=== PATIENT | male | born 1995 | race Caucasian/White ===

== ENCOUNTER 2016-10-29 19:49 | Emergency (ER) | payer OTHER ==
[2016-10-29 22:54] LABS: BASO % 0.3 % (0.0-1.0); EOS % 0.4 % (0.0-3.0); LARGE UNSTAINED CELL # 0.1 K/mm3 (0.0-0.4); LARGE UNSTAINED CELL % 1.1 % (0.0-4.0); LYMPH # 0.2 K/mm3 (1.5-6.5); LYMPH % 3.2 % (24.0-44.0); MEAN CORPUSCULAR HEMOGLOBIN 30.8 pg (27.0-33.0); MEAN CORPUSCULAR HGB CONC 33.2 g/dl (32.0-36.5); MEAN CORPUSCULAR VOLUME 92.6 fl (80.0-96.0); MONO # 0.4 K/mm3 (0.0-0.8); MONO % 6.1 % (0.0-5.0); NEUTROPHILS # 6.3 K/mm3 (1.8-7.7); PLATELET COUNT, AUTOMATED 282 k/mm3 (150-450); RED CELL DISTRIBUTION WIDTH 11.9 % (11.5-14.5); WHITE BLOOD COUNT 7.1 K/mm3 (4.0-10.0)
[2016-10-29] MEDS ORDERED: KETOROLAC 30 MG/ML VIAL (J1885) As Ordered ONE (23:10)
[2016-10-29] MEDS ORDERED: ONDANSETRON 4MG/2ML VIAL (J2405) As Ordered ONE (23:10)
[2016-10-29] MEDS ORDERED: ACETAMINOPHEN 325 MG TAB As Ordered ONE (23:10)
[2016-10-29 23:16] LABS: ALBUMIN/GLOBULIN RATIO 1.03 (1.00-1.93); ALKALINE PHOSPHATASE 99 U/L (45-117); ALT/SGPT 35 U/L (12-78); AMYLASE 54 U/L (25-115); ANION GAP 9 MEQ/L (8-16); AST/SGOT 32 U/L (15-37); BILIRUBIN,DIRECT 0.1 MG/DL (0.0-0.2); BILIRUBIN,TOTAL 1.2 MG/DL (0.2-1.0); BLOOD UREA NITROGEN 20 MG/DL (7-18); CALCIUM LEVEL 8.8 MG/DL (8.5-10.1); CARBON DIOXIDE LEVEL 26 MEQ/L (21-32); CHLORIDE LEVEL 105 MEQ/L (98-107); CREATININE FOR GFR 1.41 MG/DL (0.70-1.30); GLOMERULAR FILTRATION RATE > 60.0 (>60); GLUCOSE, FASTING 114 MG/DL (70-105); SODIUM LEVEL 140 MEQ/L (136-145); TOTAL PROTEIN 7.9 GM/DL (6.4-8.2)
[2016-10-29 23:20] LABS: POTASSIUM SERUM 4.3 MEQ/L (3.5-5.1)
--- NOTE | 2016-10-30 00:42 | EDDOCDS ---
Physician Documentation [facility] Name: Winston Rodriguez Age: 21 yrs Sex: Male : 1995 Arrival Date: 10/29/2016 Time: 19:49 Bed I4 / M4 Private MD: Other - Complete Info On Cds Disposition: 10/29/16 23:52 Discharged to Home/Self Care. Impression: Other and unspecified noninfective gastroenteritis and colitis. - Condition is Stable. - Discharge Instructions: Gastritis, Adult. - Prescriptions for Zofran 4 mg Oral Tablet - take 1 tablet by ORAL route 4 times per day As needed; 10 tablet. - Medication Reconciliation, Local Pharmacy Hours form. - Follow up: Brandon Galvan [facility]; When: 2 - 3 days; Reason: Recheck today's complaints, Continuance of care. - Problem is an ongoing problem. - Symptoms have improved. Historical: - Allergies: Amoxicillin; - Home Meds: 1. Pepto-Bismol 262 mg/15 mL Oral susp as needed (Last dose: 10/29/2016 16:15) 2. ibuprofen 800 mg Oral tab uses for chronic exertional compartment syndrome prior to running for Pain (Last dose: 10/29/2016 05:45) - PMHx: chronic exertional compartment syndrome; - PSHx: none; - Social history: Smoking status: Patient states was never smoker of tobacco. Patient/guardian denies using alcohol, street drugs, No barriers to communication noted, The patient speaks fluent Russian, Speaks appropriately for age. - Family history: roommate recently had stomach bug. - : The pt / caregiver states he / she is not on anticoagulants. Home medication list is obtained from the patient. - Exposure Risk Screening:: None identified. Vital Signs: 10/29 19:51 BP 135 / 64; Pulse 102; Resp 18 S; Temp 98.0(O); Pulse Ox 100% on R/A; Weight 90.72 kg gr2 / 200 lbs (R); Height 6 ft. 1 in. (185.42 cm) (R); Pain 6/10; 22:07 BP 136 / 60; Pulse 101; Resp 18 S; Temp 98.1(O); Pulse Ox 99% on R/A; Pain 7/10; gr2 22:30 BP 117 / 56; Pulse 101; Resp 18; Temp 101.8(TE); Pulse Ox 99% on R/A; Pain 7/10; nn1 10/30 00:40 BP 104 / 45; Pulse 85; Resp 16; Temp 100.1(O); Pulse Ox 96% on R/A; Pain 0/10; mlc 10/29 19:51 Body Mass Index 26.39 (90.72 kg, 185.42 cm) gr2 MDM: 10/29 22:33 NS 0.9% 1000 ml IV at bolus once ordered. ke 22:33 Ondansetron 4 mg IVP once ordered. ke 22:33 ketorolac 30 mg IVP once ordered. ke 22:33 IV Saline Lock ordered. ke 22:33 Undress patient appropriately for examination ordered. ke 22:33 Acetaminophen Tablet 975 mg PO once ordered. ke 22:34 Amylase Ordered. EDMS 22:34 Basic Metabolic Profile Ordered. EDMS 22:34 CBC with Diff Ordered. EDMS 22:34 Lipase Ordered. EDMS 22:34 Liver Profile Ordered. EDMS 22:35 Abdomen, Flat\E\Upright,PA Chest Ordered. EDMS 22:35 NOTHING BY MOUTH+DIET ordered. EDMS 22:44 Financial registration complete. [email or web address] 22:44 [facility] Payment Agreement was scanned into [email or web address] and attached to record. ks16 23:39 Basic Metabolic Profile Reviewed. ke 23:39 CBC with Diff Reviewed. ke 23:39 Liver Profile Reviewed. ke 23:39 Amylase Reviewed. ke 23:39 Lipase Reviewed. ke Administered Medications: 23:21 Drug: NS 0.9% 1000 ml [sodium chloride 0.9 % intravenous solution] Route: IV; Rate: mlc bolus; Site: right antecubital; 10/30 00:41 Follow up: IV Status: Completed infusion [facility] 10/29 23:21 Drug: Ondansetron 4 mg [ondansetron HCl 2 mg/mL intravenous solution (2 mL)] Route: mlc IVP; Site: right antecubital; 23:44 Follow up: Response: Nausea is decreased [facility] 23:21 Drug: ketorolac 30 mg [ketorolac 30 mg/mL (1 mL) injection solution (1 mL)] Route: IVP; mlc Site: right antecubital; 23:44 Follow up: Response: Pain is decreased [facility] 23:21 Drug: Acetaminophen 975 mg [acetaminophen 325 mg tablet (3 tabs)] Route: PO; [facility] Signatures: Dispatcher [employer] Eleuterio Shields, Nadine Celaya RN RN ttPatience Burks RN RN mlc Ethel Kerns, Reg Reg [email or web address] The chart was reviewed and I authenticate all verbal orders and agree with the evaluation and treatment provided.Attachments: 22:44 [facility] Payment Agreement [email or web address] MTDD
--- NOTE | 2016-10-30 00:42 | EDDOCDS ---
Nurse's Notes [facility] Name: Winston Rodriguez Age: 21 yrs Sex: Male : 1995 Arrival Date: 10/29/2016 Time: 19:49 Bed I4 / M4 Private MD: Other - Complete Info On Cds Diagnosis: Other and unspecified noninfective gastroenteritis and colitis Presentation: 10/29 20:14 Presenting complaint: Patient states: diarrhea since this AM. Vomiting started around ttb 1815. Abd pain, mainly mid abd/umbilical pain. Adult Sepsis Screening: The patient does not have new or worsening altered mentation. Patient's respiratory rate is less than 22. Systolic blood pressure is greater than 100. Patient has a qSOFA score of 0- Negative Sepsis Screen. Suicide/Homicide risk assessment- the patient denies having any suicidal and/or homicidal ideations and does not present with any other emotional, behavioral or mental health complaints. Status: The patient is an active duty automobile repair service estimator. Transition of care: patient was not received from another setting of care. 20:14 Acuity: JAQUELINE Level 3 ttb 20:14 Method Of Arrival: Walkin/Carried/Asstd ttb Triage Assessment: 20:17 General: Appears uncomfortable, well nourished, well groomed, Behavior is appropriate ttb for age, cooperative, flat, pleasant, quiet. Pain: Location: mid abd 6-8/10 Quality of pain is described as crampy. Pt Declines HIV testing. Neurological: Level of Consciousness is awake, alert. Cardiovascular: Chest pain is denied. Respiratory: No deficits noted. Airway is patent. GI: Reports diarrhea, upper abd pain, nausea, vomiting. Derm: Skin is pale. Musculoskeletal: Reports "muscles are starting to ache". Injury Description: No known injury. Historical: - Allergies: Amoxicillin; - Home Meds: 1. Pepto-Bismol 262 mg/15 mL Oral susp as needed (Last dose: 10/29/2016 16:15) 2. ibuprofen 800 mg Oral tab uses for chronic exertional compartment syndrome prior to running for Pain (Last dose: 10/29/2016 05:45) - PMHx: chronic exertional compartment syndrome; - PSHx: none; - Social history: Smoking status: Patient states was never smoker of tobacco. Patient/guardian denies using alcohol, street drugs, No barriers to communication noted, The patient speaks fluent Greek, Speaks appropriately for age. - Family history: roommate recently had stomach bug. - : The pt / caregiver states he / she is not on anticoagulants. Home medication list is obtained from the patient. - Exposure Risk Screening:: None identified. Screenin:19 Screening information is obtained from the patient. Fall risk: No risks identified. mlc Assistance ADL's: requires no assistance with activities of daily living. Abuse/DV Screen: The patient / caregiver reports he/she is: not in a situation that causes fear, pain or injury. Nutritional screening: No deficits noted. Advance Directives: Currently, there is no health care proxy. There is no Power of Electric Blanket Packer. home support is adequate. Assessment: 22:27 General: Appears ill, Behavior is appropriate for age, cooperative. Pain: Location: nn1 umbilical area and suprapubic area Pain currently is 7 out of 10 on a pain scale. Quality of pain is described as pressure, sharp, Is intermittent. Neurological: Level of Consciousness is awake, alert, obeys commands. Respiratory: Airway is patent Respiratory effort is even, unlabored, Respiratory pattern is regular, symmetrical. GI: Abdomen is flat, non- distended Bowel sounds present X 4 quads. Abd is soft X 4 quads Abd is tender to palpation X 4 quads. Reports diarrhea, epigastric pain, gaseousness, nausea, vomiting, diarrhea began 2 weeks ago, reports scant blood in stool. Patient reports vomiting began today, reports some red discoloration in vomit as well. Derm: Skin is pale. 23:19 General: Appears in no apparent distress, comfortable. General: pt medicated per order. mlc Neurological: Level of Consciousness is awake, alert, obeys commands, Oriented to person, place, time. Respiratory: Airway is patent Respiratory effort is even, unlabored, Respiratory pattern is regular. GI: Abdomen is flat, non- distended Bowel sounds present X 4 quads. Abd is soft X 4 quads Abd is tender to palpation in umbilical area and suprapubic area. Derm: Skin is pink, warm & dry. 23:45 Reassessment: Patient appears in no apparent distress at this time. Patient states mlc feeling better. IV fluids infusing per order. resp easy/unlabored. . 10/30 00:40 General: Appears in no apparent distress, comfortable, Behavior is cooperative. Pain: mlc Denies pain. Neurological: Level of Consciousness is awake, alert, Oriented to person, place, time. Respiratory: Airway is patent Respiratory effort is even, unlabored, Respiratory pattern is regular. Derm: Skin is pink, warm & dry. Vital Signs: 10/29 19:51 BP 135 / 64; Pulse 102; Resp 18 S; Temp 98.0(O); Pulse Ox 100% on R/A; Weight 90.72 kg gr2 (R); Height 6 ft. 1 in. (185.42 cm) (R); Pain 6/10; 22:07 BP 136 / 60; Pulse 101; Resp 18 S; Temp 98.1(O); Pulse Ox 99% on R/A; Pain 7/10; gr2 22:30 BP 117 / 56; Pulse 101; Resp 18; Temp 101.8(TE); Pulse Ox 99% on R/A; Pain 7/10; nn1 10/30 00:40 BP 104 / 45; Pulse 85; Resp 16; Temp 100.1(O); Pulse Ox 96% on R/A; Pain 0/10; mlc 10/29 19:51 Body Mass Index 26.39 (90.72 kg, 185.42 cm) gr2 Vitals: 02 19:51 Log In Time: October 29, 2016 at 19:51. gr2 22:07 Log In Time: October 29, 2016 at 22:07. gr2 ED Course: 19:50 Patient visited by Gabi Baez. gr2 19:50 Patient moved to Waiting gr2 19:51 Other - Complete Info On Cds is Private Physician. gr2 19:53 Patient visited by Gabi Baez. gr2 19:53 Patient moved to Pre RCE gr2 20:16 Triage Initiated ttb 22:09 Patient visited by Gabi Baez. gr2 22:09 Patient visited by Gabi Baez. gr2 22:21 Patient moved to Triage 3 dsf 22:28 [facility] ke 22:28 Patient visited by Eleuterio Joshi FNP. ke 22:28 Patient visited by Eleuterio Joshi FNP. ke 22:36 Patient moved to I4 / M4 dsf 22:44 [facility] Payment Agreement was scanned into [employer] and attached to record. ks16 22:47 Amylase Sent. ttb 22:47 Basic Metabolic Profile Sent. ttb 22:47 CBC with Diff Sent. ttb 22:47 Lipase Sent. ttb 22:47 Liver Profile Sent. ttb 22:48 Patient visited by Nadine Pickett RN. ttb 22:48 Inserted peripheral IV: 20gauge IV in right antecubital area and blood collected. ttb Patient tolerated the procedure well. Labs drawn. (by ED staff). 23:19 The patient / caregiver is instructed regarding the plan of care and ED course. mlc 23:22 Patient visited by Patience Blount,ANNABELLE. mlc 23:45 Patient visited by Patience Blount,ANNABELLE. [facility] 23:51 Brandon Galvan [facility] is Referral Physician. 10/30 00:40 Discontinued IV lock intact, bleeding controlled, pressure dressing applied, No mlc redness/swelling at site. No procedures done that require assistance. Administered Medications: 10/29 23:21 Drug: NS 0.9% 1000 ml [sodium chloride 0.9 % intravenous solution] Route: IV; Rate: mlc bolus; Site: right antecubital; 10/30 00:41 Follow up: IV Status: Completed infusion [facility] 10/29 23:21 Drug: Ondansetron 4 mg [ondansetron HCl 2 mg/mL intravenous solution (2 mL)] Route: mlc IVP; Site: right antecubital; 23:44 Follow up: Response: Nausea is decreased [facility] 23:21 Drug: ketorolac 30 mg [ketorolac 30 mg/mL (1 mL) injection solution (1 mL)] Route: IVP; [facility] Site: right antecubital; 23:44 Follow up: Response: Pain is decreased [facility] 23:21 Drug: Acetaminophen 975 mg [acetaminophen 325 mg tablet (3 tabs)] Route: PO; [facility] Order Results: Lab Order: Amylase; SPEC'M 10/29/16 22:46 Test: AMYLASE; Value: 54; Range: 25-115; Units: U/L; Status: F Lab Order: Basic Metabolic Profile; SPEC'M 10/29/16 22:46 Test: GLUCOSE, FASTING; Value: 114; Range: 70-105; Abnormal: Above high normal; Units: MG/DL; Status: F Test: BLOOD UREA NITROGEN; Value: 20; Range: 7-18; Abnormal: Above high normal; Units: MG/DL; Status: F Test: CREATININE FOR GFR; Value: 1.41; Range: 0.70-1.30; Abnormal: Above high normal; Units: MG/DL; Status: F Test: GLOMERULAR FILTRATION RATE; Value: > 60.0; Range: >60; Status: F Test: SODIUM LEVEL; Value: 140; Range: 136-145; Units: MEQ/L; Status: F Test: POTASSIUM SERUM; Value: 4.3; Range: 3.5-5.1; Units: MEQ/L; Status: F Test: CHLORIDE LEVEL; Value: 105; Range: 98-107; Units: MEQ/L; Status: F Test: CARBON DIOXIDE LEVEL; Value: 26; Range: 21-32; Units: MEQ/L; Status: F Test: ANION GAP; Value: 9; Range: 8-16; Units: MEQ/L; Status: F Test: CALCIUM LEVEL; Value: 8.8; Range: 8.5-10.1; Units: MG/DL; Status: F Test Note: ; Units are mL/min/1.73 m2 Chronic Kidney Disease Staging per NKF: Stage I & II GFR >=60 Normal to Mildly Decreased Stage III GFR 30-59 Moderately Decreased Stage IV GFR 15-29 Severely Decreased Stage V GFR <15 Very Little GFR Left ESRD GFR <15 on DIRECTOR OF HE[employer] MARKETING Lab Order: CBC with Diff; SPEC'M 10/29/16 22:46 Test: WHITE BLOOD COUNT; Value: 7.1; Range: 4.0-10.0; Units: K/mm3; Status: F Test: RED BLOOD COUNT; Value: 4.80; Range: 4.30-6.10; Units: M/mm3; Status: F Test: HEMOGLOBIN; Value: 14.8; Range: 14.0-18.0; Units: g/dl; Status: F Test: HEMATOCRIT; Value: 44.4; Range: 42.0-52.0; Units: %; Status: F Test: MEAN CORPUSCULAR VOLUME; Value: 92.6; Range: 80.0-96.0; Units: fl; Status: F Test: MEAN CORPUSCULAR HEMOGLOBIN; Value: 30.8; Range: 27.0-33.0; Units: pg; Status: F Test: MEAN CORPUSCULAR HGB CONC; Value: 33.2; Range: 32.0-36.5; Units: g/dl; Status: F Test: RED CELL DISTRIBUTION WIDTH; Value: 11.9; Range: 11.5-14.5; Units: %; Status: F Test: PLATELET COUNT, AUTOMATED; Value: 282; Range: 150-450; Units: k/mm3; Status: F Test: NEUTROPHILS %; Value: 89.0; Range: 36.0-66.0; Abnormal: Above high normal; Units: %; Status: F Test: LYMPH %; Value: 3.2; Range: 24.0-44.0; Abnormal: Below low normal; Units: %; Status: F Test: MONO %; Value: 6.1; Range: 0.0-5.0; Abnormal: Above high normal; Units: %; Status: F Test: EOS %; Value: 0.4; Range: 0.0-3.0; Units: %; Status: F Test: BASO %; Value: 0.3; Range: 0.0-1.0; Units: %; Status: F Test: LARGE UNSTAINED CELL %; Value: 1.1; Range: 0.0-4.0; Units: %; Status: F Test: NEUTROPHILS #; Value: 6.3; Range: 1.8-7.7; Units: K/mm3; Status: F Test: LYMPH #; Value: 0.2; Range: 1.5-6.5; Abnormal: Below low normal; Units: K/mm3; Status: F Test: MONO #; Value: 0.4; Range: 0.0-0.8; Units: K/mm3; Status: F Test: EOS #; Value: 0.0; Range: 0.0-0.50; Units: K/mm3; Status: F Test: BASO #; Value: 0.0; Range: 0.0-0.2; Units: K/mm3; Status: F Test: LARGE UNSTAINED CELL #; Value: 0.1; Range: 0.0-0.4; Units: K/mm3; Status: F Lab Order: Lipase; SPEC'M 10/29/16 22:46 Test: LIPASE; Value: 129; Range: 73-393; Units: U/L; Status: F Lab Order: Liver Profile; SPEC'M 10/29/16 22:46 Test: AST/SGOT; Value: 32; Range: 15-37; Units: U/L; Status: F Test: ALT/SGPT; Value: 35; Range: 12-78; Units: U/L; Status: F Test: ALKALINE PHOSPHATASE; Value: 99; Range: 45-117; Units: U/L; Status: F Test: BILIRUBIN,TOTAL; Value: 1.2; Range: 0.2-1.0; Abnormal: Above high normal; Units: MG/DL; Status: F Test: BILIRUBIN,DIRECT; Value: 0.1; Range: 0.0-0.2; Units: MG/DL; Status: F Test: TOTAL PROTEIN; Value: 7.9; Range: 6.4-8.2; Units: GM/DL; Status: F Test: ALBUMIN; Value: 4.0; Range: 3.2-5.2; Units: GM/DL; Status: F Test: ALBUMIN/GLOBULIN RATIO; Value: 1.03; Range: 1.00-1.93; Status: F Outcome: 23:52 Discharge ordered by Provider. nery 10/30 00:40 Discharge Assessment: Patient awake, alert and oriented x 3. No cognitive and/or mlc functional deficits noted. Patient verbalized understanding of disposition instructions. patient administered narcotics - no. The following High Risk Discharge criteria are identified: None. Discharged to home ambulatory. Condition: good Condition: stable. Discharge instructions given to patient, Instructed on discharge instructions, follow up and referral plans. medication usage, Demonstrated understanding of instructions, medications, Pt was receptive of discharge instructions/ teaching. Prescriptions given X 1. No special radiology studies were completed. Property sent home with patient. 00:42 Patient left the ED. [facility] Signatures: Eleuterio Joshi FNP FNP ke Fuller, DesireeRN Nadine Cano RN RN Gabi Cr gr2 Patience Blount RN RN mlc Nunez, Nikkole, RN RN nn1 Ethel Kerns, Reg Reg [email or web address] MTDD
--- NOTE | 2016-10-30 01:30 | REP ---
Clinical: Acute abdominal pain. Technique: Upright view of the chest with supine and upright views of the abdomen and pelvis. Findings: Frontal upright view of the chest demonstrates no acute cardiopulmonary process or free air below the diaphragm to suspect pneumoperitoneum. Supine and upright views of the abdomen and pelvis demonstrate nonspecific bowel gas pattern without obstruction or perforation. No organomegaly. No abnormal calcifications. Skeletal structures normal for age. Impression: Nonspecific bowel gas pattern. Signed by Armando Byrd MD 10/30/2016 01:21 A
--- NOTE | 2016-11-01 01:43 | EDDOCDS ---
Physician Documentation [facility] Name: Winston Rodriguez Age: 21 yrs Sex: Male : 1995 Arrival Date: 10/29/2016 Time: 19:49 Bed I4 / M4 Private MD: Other - Complete Info On Cds Disposition: 10/29/16 23:52 Discharged to Home/Self Care. Impression: Other and unspecified noninfective gastroenteritis and colitis. - Condition is Stable. - Discharge Instructions: Gastritis, Adult. - Prescriptions for Zofran 4 mg Oral Tablet - take 1 tablet by ORAL route 4 times per day As needed; 10 tablet. - Medication Reconciliation, Local Pharmacy Hours form. - Follow up: [facility]; When: 2 - 3 days; Reason: Recheck today's complaints, Continuance of care. - Problem is an ongoing problem. - Symptoms have improved. Historical: - Allergies: Amoxicillin; - Home Meds: 1. Pepto-Bismol 262 mg/15 mL Oral susp as needed (Last dose: 10/29/2016 16:15) 2. ibuprofen 800 mg Oral tab uses for chronic exertional compartment syndrome prior to running for Pain (Last dose: 10/29/2016 05:45) - PMHx: chronic exertional compartment syndrome; - PSHx: none; - Social history: Smoking status: Patient states was never smoker of tobacco. Patient/guardian denies using alcohol, street drugs, No barriers to communication noted, The patient speaks fluent Greenlandic, Speaks appropriately for age. - Family history: roommate recently had stomach bug. - : The pt / caregiver states he / she is not on anticoagulants. Home medication list is obtained from the patient. - Exposure Risk Screening:: None identified. Vital Signs: 10/29 19:51 BP 135 / 64; Pulse 102; Resp 18 S; Temp 98.0(O); Pulse Ox 100% on R/A; Weight 90.72 kg gr2 / 200 lbs (R); Height 6 ft. 1 in. (185.42 cm) (R); Pain 6/10; 22:07 BP 136 / 60; Pulse 101; Resp 18 S; Temp 98.1(O); Pulse Ox 99% on R/A; Pain 7/10; gr2 22:30 BP 117 / 56; Pulse 101; Resp 18; Temp 101.8(TE); Pulse Ox 99% on R/A; Pain 7/10; nn1 10/30 00:40 BP 104 / 45; Pulse 85; Resp 16; Temp 100.1(O); Pulse Ox 96% on R/A; Pain 0/10; mlc 10/29 19:51 Body Mass Index 26.39 (90.72 kg, 185.42 cm) gr2 MDM: 10/29 22:33 NS 0.9% 1000 ml IV at bolus once ordered. ke 22:33 Ondansetron 4 mg IVP once ordered. ke 22:33 ketorolac 30 mg IVP once ordered. ke 22:33 IV Saline Lock ordered. ke 22:33 Undress patient appropriately for examination ordered. ke 22:33 Acetaminophen Tablet 975 mg PO once ordered. ke 22:34 Amylase Ordered. EDMS 22:34 Basic Metabolic Profile Ordered. EDMS 22:34 CBC with Diff Ordered. EDMS 22:34 Lipase Ordered. EDMS 22:34 Liver Profile Ordered. EDMS 22:35 Abdomen, Flat\E\Upright,PA Chest Ordered. EDMS 22:35 NOTHING BY MOUTH+DIET ordered. EDMS 22:44 Financial registration complete. [email or web address] 22:44 [facility] Payment Agreement was scanned into [employer] and attached to record. [email or web address] 23:39 Basic Metabolic Profile Reviewed. ke 23:39 CBC with Diff Reviewed. ke 23:39 Liver Profile Reviewed. ke 23:39 Amylase Reviewed. ke 23:39 Lipase Reviewed. 10/30 11:25 T-Sheet-- Draft Copy was scanned into [employer] and attached to record. gb Administered Medications: 10/29 23:21 Drug: NS 0.9% 1000 ml [sodium chloride 0.9 % intravenous solution] Route: IV; Rate: mlc bolus; Site: right antecubital; 10/30 00:41 Follow up: IV Status: Completed infusion [facility] 10/[place] 23:21 Drug: Ondansetron 4 mg [ondansetron HCl 2 mg/mL intravenous solution (2 mL)] Route: mlc IVP; Site: right antecubital; 23:44 Follow up: Response: Nausea is decreased [facility] 23:21 Drug: ketorolac 30 mg [ketorolac 30 mg/mL (1 mL) injection solution (1 mL)] Route: IVP; [facility] Site: right antecubital; 23:44 Follow up: Response: Pain is decreased [facility] 23:21 Drug: Acetaminophen 975 mg [acetaminophen 325 mg tablet (3 tabs)] Route: PO; mlc Signatures: Dispatcher [employer] Latoya Rosales, Reg Reg gb Eleuterio Joshi, MOUSE BREEDER MOUSE BREEDER Nadine Hull RN RN ttb Patience Blount RN RN [facility] Ethel Kerns, Reg Reg [email or web address] The chart was reviewed and I authenticate all verbal orders and agree with the evaluation and treatment provided.Attachments: 22:44 [facility] Payment Agreement [email or web address] 10/30 11:25 T-Sheet-- Draft Copy gb Chart Complete MTDD
--- NOTE | 2016-11-01 01:43 | EDDOCDS ---
Nurse's Notes [facility] Name: Winston Rodriguez Age: 21 yrs Sex: Male : 1995 Arrival Date: 10/29/2016 Time: 19:49 Bed I4 / M4 Private MD: Other - Complete Info On Cds Diagnosis: Other and unspecified noninfective gastroenteritis and colitis Presentation: 10/29 20:14 Presenting complaint: Patient states: diarrhea since this AM. Vomiting started around ttb 1815. Abd pain, mainly mid abd/umbilical pain. Adult Sepsis Screening: The patient does not have new or worsening altered mentation. Patient's respiratory rate is less than 22. Systolic blood pressure is greater than 100. Patient has a qSOFA score of 0- Negative Sepsis Screen. Suicide/Homicide risk assessment- the patient denies having any suicidal and/or homicidal ideations and does not present with any other emotional, behavioral or mental health complaints. Status: The patient is an active duty district service manager. Transition of care: patient was not received from another setting of care. 20:14 Acuity: JAQUELINE Level 3 ttb 20:14 Method Of Arrival: Walkin/Carried/Asstd ttb Triage Assessment: 20:17 General: Appears uncomfortable, well nourished, well groomed, Behavior is appropriate ttb for age, cooperative, flat, pleasant, quiet. Pain: Location: mid abd 6-8/10 Quality of pain is described as crampy. Pt Declines HIV testing. Neurological: Level of Consciousness is awake, alert. Cardiovascular: Chest pain is denied. Respiratory: No deficits noted. Airway is patent. GI: Reports diarrhea, upper abd pain, nausea, vomiting. Derm: Skin is pale. Musculoskeletal: Reports "muscles are starting to ache". Injury Description: No known injury. Historical: - Allergies: Amoxicillin; - Home Meds: 1. Pepto-Bismol 262 mg/15 mL Oral susp as needed (Last dose: 10/29/2016 16:15) 2. ibuprofen 800 mg Oral tab uses for chronic exertional compartment syndrome prior to running for Pain (Last dose: 10/29/2016 05:45) - PMHx: chronic exertional compartment syndrome; - PSHx: none; - Social history: Smoking status: Patient states was never smoker of tobacco. Patient/guardian denies using alcohol, street drugs, No barriers to communication noted, The patient speaks fluent Indonesian, Speaks appropriately for age. - Family history: roommate recently had stomach bug. - : The pt / caregiver states he / she is not on anticoagulants. Home medication list is obtained from the patient. - Exposure Risk Screening:: None identified. Screenin:19 Screening information is obtained from the patient. Fall risk: No risks identified. mlc Assistance ADL's: requires no assistance with activities of daily living. Abuse/DV Screen: The patient / caregiver reports he/she is: not in a situation that causes fear, pain or injury. Nutritional screening: No deficits noted. Advance Directives: Currently, there is no health care proxy. There is no Power of Slat Twister. home support is adequate. Assessment: 22:27 General: Appears ill, Behavior is appropriate for age, cooperative. Pain: Location: nn1 umbilical area and suprapubic area Pain currently is 7 out of 10 on a pain scale. Quality of pain is described as pressure, sharp, Is intermittent. Neurological: Level of Consciousness is awake, alert, obeys commands. Respiratory: Airway is patent Respiratory effort is even, unlabored, Respiratory pattern is regular, symmetrical. GI: Abdomen is flat, non- distended Bowel sounds present X 4 quads. Abd is soft X 4 quads Abd is tender to palpation X 4 quads. Reports diarrhea, epigastric pain, gaseousness, nausea, vomiting, diarrhea began 2 weeks ago, reports scant blood in stool. Patient reports vomiting began today, reports some red discoloration in vomit as well. Derm: Skin is pale. 23:19 General: Appears in no apparent distress, comfortable. General: pt medicated per order. mlc Neurological: Level of Consciousness is awake, alert, obeys commands, Oriented to person, place, time. Respiratory: Airway is patent Respiratory effort is even, unlabored, Respiratory pattern is regular. GI: Abdomen is flat, non- distended Bowel sounds present X 4 quads. Abd is soft X 4 quads Abd is tender to palpation in umbilical area and suprapubic area. Derm: Skin is pink, warm & dry. 23:45 Reassessment: Patient appears in no apparent distress at this time. Patient states mlc feeling better. IV fluids infusing per order. resp easy/unlabored. . 10/30 00:40 General: Appears in no apparent distress, comfortable, Behavior is cooperative. Pain: mlc Denies pain. Neurological: Level of Consciousness is awake, alert, Oriented to person, place, time. Respiratory: Airway is patent Respiratory effort is even, unlabored, Respiratory pattern is regular. Derm: Skin is pink, warm & dry. Vital Signs: 10/29 19:51 BP 135 / 64; Pulse 102; Resp 18 S; Temp 98.0(O); Pulse Ox 100% on R/A; Weight 90.72 kg gr2 (R); Height 6 ft. 1 in. (185.42 cm) (R); Pain 6/10; 22:07 BP 136 / 60; Pulse 101; Resp 18 S; Temp 98.1(O); Pulse Ox 99% on R/A; Pain 7/10; gr2 22:30 BP 117 / 56; Pulse 101; Resp 18; Temp 101.8(TE); Pulse Ox 99% on R/A; Pain 7/10; nn1 10/30 00:40 BP 104 / 45; Pulse 85; Resp 16; Temp 100.1(O); Pulse Ox 96% on R/A; Pain 0/10; mlc 10/29 19:51 Body Mass Index 26.39 (90.72 kg, 185.42 cm) gr2 Vitals: 02 19:51 Log In Time: October 29, 2016 at 19:51. gr2 22:07 Log In Time: October 29, 2016 at 22:07. gr2 ED Course: 19:50 Patient visited by Gabi Baez. gr2 19:50 Patient moved to Waiting gr2 19:51 Other - Complete Info On Cds is Private Physician. gr2 19:53 Patient visited by Gabi Baez. gr2 19:53 Patient moved to Pre RCE gr2 20:16 Triage Initiated ttb 22:09 Patient visited by Gabi Baez. gr2 22:09 Patient visited by Gabi Baez. gr2 22:21 Patient moved to Triage 3 dsf 22:28 [facility] ke 22:28 Patient visited by Eleuterio Joshi FNP. ke 22:28 Patient visited by Eleuterio Joshi FNP. ke 22:36 Patient moved to I4 / M4 dsf 22:44 [facility] Payment Agreement was scanned into Savedaily and attached to record. ks16 22:47 Amylase Sent. ttb 22:47 Basic Metabolic Profile Sent. ttb 22:47 CBC with Diff Sent. ttb 22:47 Lipase Sent. ttb 22:47 Liver Profile Sent. ttb 22:48 Patient visited by Nadine Pickett RN. ttb 22:48 Inserted peripheral IV: 20gauge IV in right antecubital area and blood collected. ttb Patient tolerated the procedure well. Labs drawn. (by ED staff). 23:19 The patient / caregiver is instructed regarding the plan of care and ED course. mlc 23:22 Patient visited by Patience Blount,RN. mlc 23:45 Patient visited by Patience Blount,ANNABELLE. mlc 23:51 Brandon Galvan [facility] is Referral Physician. ke 10/30 00:40 Discontinued IV lock intact, bleeding controlled, pressure dressing applied, No mlc redness/swelling at site. No procedures done that require assistance. 01:58 Abdomen, Flat\\E\\Upright,PA Chest Returned. EDMS 11:25 T-Sheet-- Draft Copy was scanned into Savedaily and attached to record. gb Administered Medications: 10/29 23:21 Drug: NS 0.9% 1000 ml [sodium chloride 0.9 % intravenous solution] Route: IV; Rate: mlc bolus; Site: right antecubital; 10/30 00:41 Follow up: IV Status: [place] [facility] [place] 23:21 Drug: Ondansetron 4 mg [ondansetron HCl 2 mg/mL intravenous solution (2 mL)] Route: mlc IVP; Site: right antecubital; 23:44 Follow up: Response: Nausea is decreased [facility] [place]:21 Drug: ketorolac 30 mg [ketorolac 30 mg/mL (1 mL) injection solution (1 mL)] Route: [place] [facility] [place]: right antecubital; 23:44 Follow up: Response: Pain is decreased [facility] [place]:21 Drug: Acetaminophen 975 mg [acetaminophen 325 mg tablet (3 tabs)] Route: PO; [facility] [place] Results: Lab Order: Amylase; SPEC'M 10/29/16 22:46 Test: AMYLASE; Value: 54; Range: 25-115; Units: U/L; Status: F Lab Order: Basic Metabolic Profile; SPEC'M 10/29/16 22:46 Test: GLUCOSE, FASTING; Value: 114; Range: 70-105; Abnormal: Above high normal; Units: MG/DL; Status: F Test: BLOOD UREA NITROGEN; Value: 20; Range: 7-18; Abnormal: Above high normal; Units: MG/DL; Status: F Test: CREATININE FOR GFR; Value: 1.41; Range: 0.70-1.30; Abnormal: Above high normal; Units: MG/DL; Status: F Test: GLOMERULAR FILTRATION RATE; Value: > 60.0; Range: >60; Status: F Test: SODIUM LEVEL; Value: 140; Range: 136-145; Units: MEQ/L; Status: F Test: POTASSIUM SERUM; Value: 4.3; Range: 3.5-5.1; Units: MEQ/L; Status: F Test: CHLORIDE LEVEL; Value: 105; Range: 98-107; Units: MEQ/L; Status: F Test: CARBON DIOXIDE LEVEL; Value: 26; Range: 21-32; Units: MEQ/L; Status: F Test: ANION GAP; Value: 9; Range: 8-16; Units: MEQ/L; Status: F Test: CALCIUM LEVEL; Value: 8.8; Range: 8.5-10.1; Units: MG/DL; Status: F Test Note: ; Units are mL/min/1.73 m2 Chronic Kidney Disease Staging per NKF: Stage I & II GFR >=60 Normal to Mildly Decreased Stage III GFR 30-59 Moderately Decreased Stage IV GFR 15-29 Severely Decreased Stage V GFR <15 Very Little GFR Left ESRD GFR <15 on PERSONALIZED LIVING MANAGER Lab Order: CBC with Diff; SPEC'10/29/16 22:46 Test: WHITE BLOOD COUNT; Value: 7.1; Range: 4.0-10.0; Units: K/mm3; Status: F Test: RED BLOOD COUNT; Value: 4.80; Range: 4.30-6.10; Units: M/mm3; Status: F Test: HEMOGLOBIN; Value: 14.8; Range: 14.0-18.0; Units: g/dl; Status: F Test: HEMATOCRIT; Value: 44.4; Range: 42.0-52.0; Units: %; Status: F Test: MEAN CORPUSCULAR VOLUME; Value: 92.6; Range: 80.0-96.0; Units: fl; Status: F Test: MEAN CORPUSCULAR HEMOGLOBIN; Value: 30.8; Range: 27.0-33.0; Units: pg; Status: F Test: MEAN CORPUSCULAR HGB CONC; Value: 33.2; Range: 32.0-36.5; Units: g/dl; Status: F Test: RED CELL DISTRIBUTION WIDTH; Value: 11.9; Range: 11.5-14.5; Units: %; Status: F Test: PLATELET COUNT, AUTOMATED; Value: 282; Range: 150-450; Units: k/mm3; Status: F Test: NEUTROPHILS %; Value: 89.0; Range: 36.0-66.0; Abnormal: Above high normal; Units: %; Status: F Test: LYMPH %; Value: 3.2; Range: 24.0-44.0; Abnormal: Below low normal; Units: %; Status: F Test: MONO %; Value: 6.1; Range: 0.0-5.0; Abnormal: Above high normal; Units: %; Status: F Test: EOS %; Value: 0.4; Range: 0.0-3.0; Units: %; Status: F Test: BASO %; Value: 0.3; Range: 0.0-1.0; Units: %; Status: F Test: LARGE UNSTAINED CELL %; Value: 1.1; Range: 0.0-4.0; Units: %; Status: F Test: NEUTROPHILS #; Value: 6.3; Range: 1.8-7.7; Units: K/mm3; Status: F Test: LYMPH #; Value: 0.2; Range: 1.5-6.5; Abnormal: Below low normal; Units: K/mm3; Status: F Test: MONO #; Value: 0.4; Range: 0.0-0.8; Units: K/mm3; Status: F Test: EOS #; Value: 0.0; Range: 0.0-0.50; Units: K/mm3; Status: F Test: BASO #; Value: 0.0; Range: 0.0-0.2; Units: K/mm3; Status: F Test: LARGE UNSTAINED CELL #; Value: 0.1; Range: 0.0-0.4; Units: K/mm3; Status: F Lab Order: Lipase; SPEC'M 10/29/16 22:46 Test: LIPASE; Value: 129; Range: 73-393; Units: U/L; Status: F Lab Order: Liver Profile; SPEC'M 10/29/16 22:46 Test: AST/SGOT; Value: 32; Range: 15-37; Units: U/L; Status: F Test: ALT/SGPT; Value: 35; Range: 12-78; Units: U/L; Status: F Test: ALKALINE PHOSPHATASE; Value: 99; Range: 45-117; Units: U/L; Status: F Test: BILIRUBIN,TOTAL; Value: 1.2; Range: 0.2-1.0; Abnormal: Above high normal; Units: MG/DL; Status: F Test: BILIRUBIN,DIRECT; Value: 0.1; Range: 0.0-0.2; Units: MG/DL; Status: F Test: TOTAL PROTEIN; Value: 7.9; Range: 6.4-8.2; Units: GM/DL; Status: F Test: ALBUMIN; Value: 4.0; Range: 3.2-5.2; Units: GM/DL; Status: F Test: ALBUMIN/GLOBULIN RATIO; Value: 1.03; Range: 1.00-1.93; Status: F Radiology Order: Abdomen, Flat\\E\\Upright,PA Chest Test: Abdomen, Flat\\E\\Upright,PA Chest REASON FOR EXAMINATION: Abdomen Pain; Clinical: Acute abdominal pain.; ; Technique: Upright view of the chest with supine and upright views of the; abdomen and pelvis.; ; Findings: Frontal upright view of the chest demonstrates no acute; cardiopulmonary process or free air below the diaphragm to suspect; pneumoperitoneum. Supine and upright views of the abdomen and pelvis demonstrate; nonspecific bowel gas pattern without obstruction or perforation. No; organomegaly. No abnormal calcifications. Skeletal structures normal for age.; ; Impression:; Nonspecific bowel gas pattern.; ; ; Signed by; Armando Byrd MD 10/30/2016 01:21 A; Outcome: 23:52 Discharge ordered by Provider. nery 10/30 00:40 Discharge Assessment: Patient awake, alert and oriented x 3. No cognitive and/or mlc functional deficits noted. Patient verbalized understanding of disposition instructions. patient administered narcotics - no. The following High Risk Discharge criteria are identified: None. Discharged to home ambulatory. Condition: good Condition: stable. Discharge instructions given to patient, Instructed on discharge instructions, follow up and referral plans. medication usage, Demonstrated understanding of instructions, medications, Pt was receptive of discharge instructions/ teaching. Prescriptions given X 1. No special radiology studies were completed. Property sent home with patient. 00:42 [place] [facility] [place] Signatures: Dispatcher [employer] EDMS Latoya Owens, Reg Reg gb Eleuterio Joshi, TEACHER LIP READING TEACHER LIP READING Kathryn AlejandroRN RN Nadine Etienne RN RN Gabi Cr 2 Patience Blount RN RN mlc Nunez, Nikkole, RN RN nn1 Ethel Kerns, Reg Reg [email or web address] Chart Complete MTDMichael
--- NOTE | 2016-11-01 01:43 | EDDOCDS ---
Physician Documentation [facility] Name: Winston Rodriguez Age: 21 yrs Sex: Male : 1995 Arrival Date: 10/29/2016 Time: 19:49 Bed I4 / M4 Private MD: Other - Complete Info On Cds Disposition: 10/29/16 23:52 Discharged to Home/Self Care. Impression: Other and unspecified noninfective gastroenteritis and colitis. - Condition is Stable. - Discharge Instructions: Gastritis, Adult. - Prescriptions for Zofran 4 mg Oral Tablet - take 1 tablet by ORAL route 4 times per day As needed; 10 tablet. - Medication Reconciliation, Local Pharmacy Hours form. - Follow up: Brandon Galvan [facility]; When: 2 - 3 days; Reason: Recheck today's complaints, Continuance of care. - Problem is an ongoing problem. - Symptoms have improved. Historical: - Allergies: Amoxicillin; - Home Meds: 1. Pepto-Bismol 262 mg/15 mL Oral susp as needed (Last dose: 10/29/2016 16:15) 2. ibuprofen 800 mg Oral tab uses for chronic exertional compartment syndrome prior to running for Pain (Last dose: 10/29/2016 05:45) - PMHx: chronic exertional compartment syndrome; - PSHx: none; - Social history: Smoking status: Patient states was never smoker of tobacco. Patient/guardian denies using alcohol, street drugs, No barriers to communication noted, The patient speaks fluent Andorran, Speaks appropriately for age. - Family history: roommate recently had stomach bug. - : The pt / caregiver states he / she is not on anticoagulants. Home medication list is obtained from the patient. - Exposure Risk Screening:: None identified. Vital Signs: 10/29 19:51 BP 135 / 64; Pulse 102; Resp 18 S; Temp 98.0(O); Pulse Ox 100% on R/A; Weight 90.72 kg gr2 / 200 lbs (R); Height 6 ft. 1 in. (185.42 cm) (R); Pain 6/10; 22:07 BP 136 / 60; Pulse 101; Resp 18 S; Temp 98.1(O); Pulse Ox 99% on R/A; Pain 7/10; gr2 22:30 BP 117 / 56; Pulse 101; Resp 18; Temp 101.8(TE); Pulse Ox 99% on R/A; Pain 7/10; nn1 10/30 00:40 BP 104 / 45; Pulse 85; Resp 16; Temp 100.1(O); Pulse Ox 96% on R/A; Pain 0/10; mlc 10/29 19:51 Body Mass Index 26.39 (90.72 kg, 185.42 cm) gr2 MDM: 10/29 22:33 NS 0.9% 1000 ml IV at bolus once ordered. ke 22:33 Ondansetron 4 mg IVP once ordered. ke 22:33 ketorolac 30 mg IVP once ordered. ke 22:33 IV Saline Lock ordered. ke 22:33 Undress patient appropriately for examination ordered. ke 22:33 Acetaminophen Tablet 975 mg PO once ordered. ke 22:34 Amylase Ordered. EDMS 22:34 Basic Metabolic Profile Ordered. EDMS 22:34 CBC with Diff Ordered. EDMS 22:34 Lipase Ordered. EDMS 22:34 Liver Profile Ordered. EDMS 22:35 Abdomen, Flat\E\Upright,PA Chest Ordered. EDMS 22:35 NOTHING BY MOUTH+DIET ordered. EDMS 22:44 Financial registration complete. [email or web address] 22:44 [facility] Payment Agreement was scanned into [employer] and attached to record. ks16 23:39 Basic Metabolic Profile Reviewed. ke 23:39 CBC with Diff Reviewed. ke 23:39 Liver Profile Reviewed. ke 23:39 Amylase Reviewed. ke 23:39 Lipase Reviewed. 10/30 11:25 T-Sheet-- Draft Copy was scanned into [employer] and attached to record. gb Administered Medications: 10/29 23:21 Drug: NS 0.9% 1000 ml [sodium chloride 0.9 % intravenous solution] Route: IV; Rate: mlc bolus; Site: right antecubital; 10/30 00:41 Follow up: IV Status: [place] [facility] [place] 23:21 Drug: Ondansetron 4 mg [ondansetron HCl 2 mg/mL intravenous solution (2 mL)] Route: mlc IVP; Site: right antecubital; 23:44 Follow up: Response: Nausea is decreased [facility] 23:21 Drug: ketorolac 30 mg [ketorolac 30 mg/mL (1 mL) injection solution (1 mL)] Route: [place]P; [facility] [place] Site: right antecubital; 23:44 Follow up: Response: Pain is decreased [facility] 23:21 Drug: Acetaminophen 975 mg [acetaminophen 325 mg tablet (3 tabs)] Route: PO; mlc Signatures: Dispatcher [employer] Latoya Rosales, Reg Reg gb Eleuterio Joshi, ELECTRIC WELDER HELPER ELECTRIC WELDER HELPER Nadine Hull RN RN ttb Patience Blount RN RN [facility] Ethel Kerns, Reg Reg [email or web address] The chart was reviewed and I authenticate all verbal orders and agree with the evaluation and treatment provided.Attachments: 22:44 [facility] Payment Agreement [email or web address] 10/30 11:25 T-Sheet-- Draft Copy gb Chart Complete MTDD
== END 2016-10-30 00:42 | disposition home or self-care (01) ==
LOC: M ED 19:49
DX: A08.4 Viral intestinal infection, unspecified (principal); Z88.0 Allergy status to penicillin
CPT/HCPCS: 36415; 74022; 80048; 80076; 82150; 83690; 85025; 96361; 96374; 96375; 99284; J1885; J2405